=== PATIENT | female | born 1990 | race Caucasian/White ===

== ENCOUNTER 2022-03-24 05:03 | Inpatient (IN) ==
--- NOTE | 2022-03-17 16:24 | Anesthesiology Consultation ---
Date of Service March 17, 2022 Assessment & Plan (1) Encounter for pre-operative examination: Plan - COVID screening: Per boat loader on 03/16/2022: Travel screen negative, no known COVID-19 positive contacts or current COVID-19 related symptoms in past 2 weeks. To surgeon's discretion if preop COVID testing is needed. Chart Review Chart Review: Acceptable Risk for Surgery and Patient NOT seen in Pre Admission Testing History Surgery Operation Date: 03/24/22 07:30 Proposed Procedures p Section in LD (Delivery of Baby through Abdominal Incision) - Vanna Tran MD Height/Weight Height: 5 ft 5.5 in Weight: 64.41 kg Allergies Allergy/AdvReac Type Severity Reaction Status Date / Time gluten Allergy Severe celiac Verified 03/17/22 15:07 disease Medications Home Medications Medication Instructions Recorded Confirmed Last Taken prenat.vits,moreno,sip-pzdi-kcnly 1 tab PO QAM 08/11/21 03/17/22 Unknown Saccharomyces boulardii 250 mg 250 mg PO QAM 03/17/22 03/17/22 Unknown capsule ferrous sulfate 325 mg (65 mg 325 mg PO Q2D 03/17/22 03/17/22 Unknown iron) tablet Past Medical History Medical History Celiac disease History of COVID-28 April 2021 --> fever that lasted 10 days, chills and aches. no current issues Multiple gestation 2018 -- twins labor 35 weeks 1 days (2018) Past Family History Family History Grandmother Diabetes Grandfather (Maternal) Myocardial infarction Hypertension Grandfather (Paternal) Myocardial infarction Hypertension Mother Family history of reaction to anesthesia vomiting Sjogren's disease Denies family history of Ovarian cancer Prostate cancer Breast cancer Colorectal cancer Past Surgical History Surgical History H/O bladder repair surgery d/t a laceration during (04/2018) History of colonoscopy History of esophagogastroduodenoscopy (EGD) Hx of LASIK Previous section [place] teeth extracted Social History Smoking Status: Never smoker Do You Dip or Chew Tobacco: No Hx Alcohol Use: Yes (not during ) Alcohol type: wine alcohol intake frequency: a few times a week Hx Substance Use: No substance use type: does not use
--- NOTE | 2022-03-23 17:13 | History & Physical Report ---
Date of Service March 23, 2022 Assessment & Plan (1) Previous delivery affecting , antepartum: Plan: 31 yo at 39 3/7 wga presents for preop for planned repeat CS VSS Discussed indications, risks, benefits, alternatives with risks including infection, bleeding, injury to adjacent structures (bowel, bladder, ureters, blood vessels, nerves, baby), possible need for blood transfusion and/or life saving hysterectomy, VTE. Discussed risk of scar tissue due to prior bladder injury. Consent reviewed in detail w/ pt and signed after all questions answered to her satisfaction. History of Present Illness Chief Complaint: Preop Primary Care Provider: Tamera Lofton MD 31 yo at 39 3/7 wga presents for preop for planned repeat CS tomorrow. 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 primary CS for TIUP at 35wks c/b bladder injury during broderick placement G2 current q26d cycles 01/2021 neg cyto Allergies Allergy/AdvReac Type Severity Reaction Status Date / Time gluten Allergy Severe celiac Verified 03/23/22 09:08 disease Home Medications Medication Instructions Recorded Confirmed Type prenat.vits,moreno,fpm-panm-ahhyd 1 tab PO QAM 08/11/21 03/23/22 History Saccharomyces boulardii 250 mg 250 mg PO QAM 03/17/22 03/23/22 History capsule ferrous sulfate 325 mg (65 mg 325 mg PO Q2D 03/17/22 03/23/22 History iron) tablet Patient History Medical History Celiac disease History of COVID-28 April 2021 --> fever that lasted 10 days, chills and aches. no current issues Multiple gestation 2018 -- twins labor 35 weeks 1 days (2018) Surgical History H/O bladder repair surgery d/t a laceration during (04/2018) History of colonoscopy History of esophagogastroduodenoscopy (EGD) Hx of LASIK Previous section [place] teeth extracted Family History Grandmother Diabetes Grandfather (Maternal) Myocardial infarction Hypertension Grandfather (Paternal) Myocardial infarction Hypertension Mother Family history of reaction to anesthesia vomiting Sjogren's disease Denies family history of Ovarian cancer Prostate cancer Breast cancer Colorectal cancer Social History (Updated 08/11/21 @ 17:12 by Jessie Ley) Smoking Status: Never smoker Second Hand Exposure: No; Hx Alcohol Use: Yes (not during ) Alcohol type: wine Alcohol Intake Frequency: 2-3 x/Week Hx Substance Use: No Preferred Language: Yoruba Communication Ability: Effective Multilith Operator Required: No Beliefs That Will Affect Care: None marital status: marital status details: Philipp (34) [phone] Current Living Situation: Spouse and Family Current Living Situation Comment: Lives with and 2 kids, no pets. current occupational status: employed current occupation: Accounting Feels Safe at Home: Yes caffeine: Yes Dental Care, Regularly: Yes Physical Activity Frequency: Daily Physical Activity Frequency Comment: walking Seatbelt Use: always Sunscreen Use: Yes Assistive Devices: None Physical Exam Respiratory: normal respiratory effort, lungs clear to auscultation Cardiovascular: RRR, no murmur, no edema Genitourinary: OB Exam Abdomen: + heart tones (130s) and + vertex Results & Data ([facility]) Laboratory Results OB Labs: Blood Type O Positive 08/17/21 Antibody Screen NEGATIVE 08/17/21 Hemoglobin 10.9 g/dl (12.0-16.0) L 01/04/22 Hematocrit 32.0 % (34.1-44.9) L 01/04/22 Mean Corpuscular Volume 93.3 fL (80-100) 08/17/21 Platelet Count 230 K/uL (130-400) 08/17/21 Rubella IgG Antibody Non Immune (Immune) L 08/17/21 Rapid Plasma Reagin Nonreactive (Nonreactive) 08/17/21 Hepatitis B Surface Antigen. NON-REACTIVE (NON-REACTIVE) 08/17/21 Hepatitis C Antibody (EIA) NON-REACTIVE (NON-REACTIVE) 08/17/21 HIV (1&2) Ag and Ab Confirmation NON-REACTIVE (NON-REACTIVE) 08/17/21 Glucose 1 Hour 50 gm Load 141 mg/dl (70-130) H 10/12/21 OB Optional Labs: Chlamydia trachomatis RNA NOT DETECTED (NOT DETECTED) 08/17/21 Neisseria gonorrhoeae RNA NOT DETECTED (NOT DETECTED) 08/17/21 Thyroid Stimulating Hormone (TSH) 1.060 uIu/ml (0.300-4.500) 12/07/20 Labs Reviewed: Declines cf/sma--mln Declines cfdna--mln declines afp passed 2 hr gtt x 2 Diagnostic Findings Fundal plac Coding Level of Care Code None Diagnoses Previous delivery affecting , antepartum O34.219
[2022-03-24] MEDS ORDERED: LACTATED RINGER'S 1,000 ML IV SCH ×2 (05:15→09:06)
[2022-03-24] MEDS ORDERED: CITRIC ACID/SODIUM CITRATE 15 ML UDC PO SCH (06:00)
[2022-03-24] MEDS ORDERED: ceFAZolin 2000MG 2,000 MG/15 ML SYR IV SCH (06:00)
[2022-03-24 06:29] LABS: Basophils # (auto) 0.01 K/uL (0-0.2); Basophils % (auto) 0.2 %; Eosinophils # (auto) 0.03 K/uL (0-0.50); Eosinophils % (auto) 0.5 %; Hematocrit (blood only) 30.5 % (34.1-44.9); Hemoglobin 10.4 g/dl (12.0-16.0); Immature Granulocytes # (auto) 0.01 K/uL (0.00-0.02); Immature Granulocytes % (auto) 0.2 %; Lymphocytes # (auto) 1.17 K/uL (1.2-3.4); Lymphocytes % (auto) 20.9 %; Mean Corpuscular Hemoglobin 33.3 pg (25.0-34.0); Mean Corpuscular Hgb Conc 34.1 g/dL (32.0-36.0); Mean Corpuscular Volume 97.8 fL (80.0-100.0); Mean Platelet Volume 9.7 fL (9.4-12.3); Monocytes # (auto) 0.42 K/uL (0.24-0.82); Monocytes % (auto) 7.5 %; Neutrophils # (auto) 3.95 K/uL (1.4-6.5); Neutrophils % (auto) 70.7 %; Platelet Count 173 K/uL (130-400); RDW Coefficient of Variation 12.7 % (11.5-14.5); RDW Standard Deviation 45.1 fL (36.4-46.3); Red Blood Count 3.12 M/uL (3.93-5.22); White Blood Count 5.59 K/ul (4.8-10.8)
--- NOTE | 2022-03-24 07:17 | History & Physical Bridge Note ---
Date of Service March 24, 2022 History & Physical Bridge Note I have examined the patient, reviewed the History & Physical and in the interval since the performance of the History & Physical I have noted the following changes of clinical significance: no changes noted
[2022-03-24] MEDS ORDERED: ePHEDrine sulfate 50 MG/ML AMP IV PRN (07:24)
[2022-03-24] MEDS ORDERED: HYDROmorphone INJ 0.5 MG/0.5 ML SYR IV PRN (07:24)
[2022-03-24] MEDS ORDERED: NALOXONE HCL 0.08 MG in SYRINGE 1.8 ML IV PRN (07:24)
[2022-03-24] MEDS ORDERED: MoRPHine SULFATE PF 1 MG/ML 10 ML AMP/VIAL INT SPINAL ONE (07:24)
[2022-03-24] MEDS ORDERED: NALOXONE HCL 0.4 MG/1 ML VIAL/CARP IV PRN (07:24)
[2022-03-24] MEDS ORDERED: ONDANSETRON INJ 2 MG/ML 2 ML VIAL IV PRN (07:24)
[2022-03-24] MEDS ORDERED: LACTATED RINGER'S 500 ML IV PRN (07:24)
[2022-03-24] MEDS ORDERED: NALBUPHINE HCL INJ 10 MG/ML AMP IV PRN (07:24)
[2022-03-24] MEDS ORDERED: NALOXONE HCL 1 MG in SODIUM CHLORIDE 0.9% 1000ML 1,000 ML IV PRN (07:24)
[2022-03-24] MEDS ORDERED: fentaNYL citrate 100 MCG/2 ML VIAL ONE (07:29)
[2022-03-24] MEDS ORDERED: MoRPHine SULFATE PF 1 MG/ML 10 ML AMP/VIAL ONE (07:29)
[2022-03-24] MEDS ORDERED: SODIUM CHLORIDE 0.9% 1000ML 1,000 ML IV SCH (07:30)
[2022-03-24] MEDS ORDERED: NO NARCOTICS OR SEDATIVES SCH (07:30)
[2022-03-24] MEDS ORDERED: DC INTRASPINAL MORPHINE SCH (07:30)
[2022-03-24] MEDS ORDERED: OXYTOCIN 10 UNITS/ML 10ML VIAL ONE (07:35)
[2022-03-24] MEDS ORDERED: PHENYLEPHRINE 100MCG/ML 5ML SYR ONE (07:52)
[2022-03-24] MEDS ORDERED: ONDANSETRON INJ 2 MG/ML 2 ML VIAL ONE (08:17)
[2022-03-24] MEDS ORDERED: MEASLES, MUMPS & RUBELLA VIRUS VIAL SQ ONE (09:06)
[2022-03-24] MEDS ORDERED: HYDROCORTISONE ACETATE 25 MG SUPP PR PRN (09:06)
[2022-03-24] MEDS ORDERED: MAGNESIUM HYDROXIDE SUSP 30 ML UDC PO PRN (09:06)
[2022-03-24] MEDS ORDERED: DIPHTHERIA/TETANUS/PERTUSSIS 0.5 ML SYR/VIAL IM ONE (09:06)
[2022-03-24] MEDS ORDERED: BENZOCAINE 20% AER SPR 82.5 GM CAN EXT PRN (09:06)
[2022-03-24] MEDS ORDERED: SENNA 8.6 MG TAB PO PRN (09:06)
--- NOTE | 2022-03-24 09:10 | Operative Report ---
PG Post Operative Report Pre & Post Diagnosis Operation Date: 03/24/22 07:30 Pre-Op Diagnosis: Previous section, desires repeat Post-Op Diagnosis: Previous section; desires repeat, living female child at 0813 I identified the patient and participated in the time-out.: Yes Procedure Operation Date: 03/24/22 07:30 Actual Procedures p Repeat Low Transverse Section for living female child at 0813(Bilateral) - Vanna Tran MD Surgeon Vanna Tran MD Clay Pigeon Loader MD Kiya Estimated Blood Loss 650 Findings Consistent with Post-Op Diagnosis Mild fascial adhesions. Mostly filmy bladder adhesions to residential up uterus, few areas of slightly denser peritoneal adhesions. Normal appearing bilateral fallopian tubes and ovaries, right tube and ovary slightly adhesed to posterior right uterus. Fluids 2200cc crystalloid, 500cc clear uop by broderick catheter Specimens Cord blood Drains Broderick catheter draining clear urine Anesthesia Type Spinal Complications none Indications 31 yo at 39 4/7 wga presents for elective repeat CS. Hx CSx1 for twins in last complicated by bladder injury Description of Procedure The patient was taken to the operating room after consents were ensured. The patient was properly identified. Spinal anesthesia was obtained without difficulty. The patient was placed in a dorsal supine position with left lateral tilt, then prepped and draped in normal sterile fashion. Surgical time out was performed. Antibiotics were given for prophylaxis. Anesthesia was tested to ensure adequate surgical levels. Pfannenstiel skin incision was performed and carried down to the underlying fascia with a knife. The fascia was then nicked in the midline and extended laterally with pickups and Whaley scissors. Superior portion of the fascia was grasped with Kochers x2 and elevated off the underlying rectus muscles using blunt dissection and scissors. Inferior portion of the fascia was then grasped with Tamia clamps x2 and also elevated off the underlying muscles with blunt dissection and knife. Midline was identified. The peritoneum was entered at time of fascial dissection and extended to provide adequate room for delivery of baby. A hand was inserted into the abdomen, the above adhesions were noted and taken down sharply. Bladder blade was inserted, bladder flap was created in the usual fashion after the above adhesions were taken down. A low transverse uterine incision was made in the uterus and extended bluntly in a superior to inferior fashion. Amniotomy was made with clear fluid at the time of rupture. head was grasped and elevated through the hysterotomy in an atraumatic fashion. The baby delivered in YANCY position, no nuchal cord. Remainder of the body delivered without incident. Nose and mouth were bulb suctioned on the surgical field. The cord was double clamped and cut, baby was handed off to awaiting pediatrics staff. Cord segment and blood were obtained. Placenta was then expressed from the uterus. The uterus was exteriorized. Several passes were made inside the uterus to remove the remaining membranes. Attention was then turned to the hysterotomy, which was then closed with a running locked suture of 0 Vicryl on a CTX needle. An imbricating layer was then performed using 0-Monocryl. There was noted to be good hemostasis. The posterior cul-de-sac was then inspected and cleaned of clot and debris. The hysterotomy was again inspected and noted to be hemostatic. The uterus was returned to the abdomen. The right and left pericolic gutters were cleaned of all clot and debris. The hysterotomy was again noted to be hemostatic. Space of Retzius was noted to be hemostatic. The fascia was then closed with a running suture of 0 Vicryl on a CT1 needle. Subcutaneous tissue was copiously irrigated and noted to be hemostatic. Subcutaneous tissue was re-approximated using 2-0 plain gut. The skin was then closed with a running suture of 3-0 Monocryl in a subcuticular fashion. At termination of the procedure, fundal pressure was applied and a moderate amount of lochia was expressed. Pressure dressing was applied to the patient. She tolerated the procedure well. All sponge, needle, instrument counts were correct x 2. I attest to the content of the Intraoperative Record and any orders documented therein. Any exceptions are noted below. OB Procedure Charges 76134
[2022-03-24] MEDS ORDERED: OXYTOCIN 20 UNITS in LACTATED RINGER'S 1,000 ML IV SCH (09:15)
--- NOTE | 2022-03-24 09:39 | Anesthesiology Progress Note ---
Date of Service March 24, 2022 Anesthesia Post Procedure Vital Signs Vital Signs: Temp Pulse Resp BP Pulse Ox 03/24/22 09:25 16 03/24/22 09:15 16 03/24/22 09:00 36.5 C 18 03/24/22 05:27 37.0 C 18 03/24/22 09:36 60 98 03/24/22 09:35 58 L 97/70 L 03/24/22 09:31 62 99 03/24/22 09:26 61 99 03/24/22 09:25 62 93/66 L 03/24/22 09:21 54 L 100 03/24/22 09:16 52 L 99 03/24/22 09:15 52 L 92/63 L 03/24/22 09:11 54 L 98 03/24/22 09:06 59 L 99 03/24/22 09:04 60 93/51 L 03/24/22 09:01 53 L 99 03/24/22 09:02 51 L 87/55 L 03/24/22 07:35 62 99 03/24/22 07:30 71 98 03/24/22 07:25 73 99 03/24/22 07:20 68 98 03/24/22 07:05 63 107/63 03/24/22 06:55 18 03/24/22 06:55 36.6 C 18 03/24/22 05:19 74 124/67 Transfer of Care Handoff Completed per policy Notes Mental Status: alert / awake / arousable Patient Amnestic to Procedure: Yes Nausea / Vomiting: adequately controlled Pain: adequately controlled Airway Patency, RR, SpO2: stable & adequate BP & HR: stable & adequate Hydration State: stable & adequate Neuraxial Anesthesia: was administered and sensory block is resolving Anesthetic Complications: no major complications apparent and Pt Satisfied with anesthetic care
[2022-03-24] MEDS: KETOROLAC 30 MG/ML VIAL IV PRN ×2 (11:27→19:30)
[2022-03-24] MEDS: SIMETHICONE 80 MG CHEW PO SCH ×3 (13:48→21:00)
[2022-03-24] MEDS ORDERED: DROPERIDOL 5 MG/2 ML VIAL IV STA (14:01)
[2022-03-24] MEDS: diphenhydrAMINE 50 MG/ML VIAL IV PRN ×2 (15:56→23:41)
[2022-03-24] MEDS: DOCUSATE SODIUM 100 MG CAP PO SCH (21:00)
[2022-03-25] MEDS: KETOROLAC 30 MG/ML VIAL IV PRN (00:55)
[2022-03-25] MEDS ORDERED: diphenhydrAMINE 50 MG/ML VIAL IV PRN (01:25)
[2022-03-25] MEDS ORDERED: KETOROLAC 30 MG/ML VIAL IV PRN (01:25)
[2022-03-25] MEDS ORDERED: PROMETHAZINE HCL 25 MG in SODIUM CHLORIDE 0.9% 50 ML IV PRN (01:25)
[2022-03-25] MEDS ORDERED: ONDANSETRON INJ 2 MG/ML 2 ML VIAL IV PRN (01:25)
[2022-03-25] MEDS ORDERED: diphenhydrAMINE Capsule 25 MG CAP PO PRN (01:25)
--- NOTE | 2022-03-25 04:23 | Obstetrical Progress Note ---
Date of Service March 25, 2022 Assessment & Plan (1) care following delivery: Plan - Overall, feeling well and eating well today - Infant feeding going well without concern - Continue to follow urination, passing gas appropriately - Ambulating well - Pain controlled w/ Ibuprofen and Percocet - Hgb 10.4 on 03/24 - Vitals stable - Incision clean and dry w/o erythema or purulence - Routine PP care progressing well - Anticipate discharge at 48-72 hours - Recommending f/u outpatient in 6 weeks Admission and Anticipated Discharge Date Admission Date: March 24, 2022 Supervising Physician Co-Signing Physician Notes Resident Physician Supervision Note: I interviewed and examined the patient. Discussed with Dr. Stone and agree with findings and plan as documented in the note. Any exceptions or clarifications are listed here: POD1 s/p rLTCS, doing well. Gomez out, not yet voided but meeting other pp milestones. VSS, exam benign and wnl, incision c/d/i. Continue routine pp care Documented By: Vanna Tran MD Subjective Patient is a 31 y/o female who is POD #1 following delivery at 39w3d. She reports feeling well overall this morning. - Ambulation - well throughout room, single episode of syncope with first walk to bathroom, none since - Voiding/Gomez - no independent voids, no dysuria or pressure, Gomez removed thi AM - Gas/Stool - passing gas, no bowel movement - Diet - regular, no nausea or emesis - Lochia - diminishing, light amount - Feeding Type - breast feeding - Pain Level - 2/10, controlled with Ibuprofen and Percocet Review of Systems - Denies fever, chills, sweats - Denies shortness of breath, difficulty breathing, chest pain, palpitations, chest pressure. - Denies breast pain. - Denies dysuria. - Denies headache or changes in vision. Physical Exam Physical Exam: General: Alert, oriented. No acute distress. Cardiac: RRR, normal S1/S2, no murmurs/rubs/gallops. Respiratory: Non-labored, CTAB, no wheezes/rales/rhonchi. Symmetric chest rise. Abdomen: Soft, nontender, nondistended. Bowel sounds present. Incision clean and dry w/o erythema or purulence Uterus: Uterine fundus firm, palpable 1 cm below umbilicus. Lower Extremities: No lower extremity edema or swelling. No deep calf pain. Scott's negative bilaterally. Results & Data ([facility]) Vital Signs (Past 12 Hours) Vital Signs Temp Pulse Resp BP Pulse Ox Pulse Ox O2 Del Method 03/25/22 01:30 18 97 03/25/22 00:30 18 97 03/24/22 21:30 18 97 03/24/22 22:30 18 98 03/24/22 23:30 36.8 C 65 18 100/66 97 Room Air 03/24/22 23:30 97 03/24/22 20:30 18 97 03/24/22 23:45 18 97 03/24/22 19:40 18 98 03/24/22 19:40 36.7 C 74 18 106/71 98 Room Air 03/24/22 19:40 99 03/24/22 18:00 16 100 03/24/22 17:00 18 100 O2 Del Method 03/25/22 01:30 03/25/22 00:30 03/24/22 21:30 03/24/22 22:30 03/24/22 23:30 03/24/22 23:30 Room Air 03/24/22 20:30 03/24/22 23:45 03/24/22 19:40 03/24/22 19:40 03/24/22 19:40 Room Air 03/24/22 18:00 03/24/22 17:00 Resident Activity Tracking Resident Involvement: Resident Care Provided Care Provided: OB Delivery
[2022-03-25] MEDS: oxyCODONE/ACETAMINOPHEN 5mg/325mg TAB PO PRN ×5 (06:27→23:45)
[2022-03-25] MEDS: IBUPROFEN 600 MG TAB PO PRN ×5 (06:28→23:44)
[2022-03-25] MEDS: SIMETHICONE 80 MG CHEW PO SCH ×4 (07:54→19:37)
[2022-03-25] MEDS: DOCUSATE SODIUM 100 MG CAP PO SCH ×2 (07:55→19:37)
[2022-03-25] MEDS: PRENATAL VITAMIN 1 TAB PO SCH (07:55)
[2022-03-25] MEDS: FERROUS SULFATE 325 MG TAB PO SCH (07:55)
[2022-03-25 08:33] LABS: Basophils # (auto) 0.02 K/uL (0-0.2); Basophils % (auto) 0.2 %; Eosinophils # (auto) 0.03 K/uL (0-0.50); Eosinophils % (auto) 0.3 %; Hematocrit (blood only) 34.6 % (34.1-44.9); Hemoglobin 11.7 g/dl (12.0-16.0); Immature Granulocytes # (auto) 0.03 K/uL (0.00-0.02); Immature Granulocytes % (auto) 0.3 %; Lymphocytes # (auto) 1.15 K/uL (1.2-3.4); Lymphocytes % (auto) 11.3 %; Mean Corpuscular Hemoglobin 33.7 pg (25.0-34.0); Mean Corpuscular Hgb Conc 33.8 g/dL (32.0-36.0); Mean Corpuscular Volume 99.7 fL (80.0-100.0); Mean Platelet Volume 9.9 fL (9.4-12.3); Monocytes # (auto) 0.53 K/uL (0.24-0.82); Monocytes % (auto) 5.2 %; Neutrophils # (auto) 8.43 K/uL (1.4-6.5); Neutrophils % (auto) 82.7 %; Platelet Count 197 K/uL (130-400); RDW Coefficient of Variation 12.7 % (11.5-14.5); RDW Standard Deviation 46.1 fL (36.4-46.3); Red Blood Count 3.47 M/uL (3.93-5.22); White Blood Count 10.19 K/ul (4.8-10.8)
[2022-03-25] MEDS ORDERED: bisacodyL 5 MG TABEC PO SCH (20:00)
--- NOTE | 2022-03-26 05:44 | Obstetrical Progress Note ---
Date of Service March 26, 2022 Assessment & Plan (1) care following delivery: Plan - Overall, feeling well and eating well today - Infant feeding going well without concern - Urinating independently, passing gas appropriately - Ambulating well in room - Pain controlled w/ Ibuprofen and Percocet - Hgb 11.7 on 03/25 - Vitals stable and wnl - Incision clean and dry w/o erythema or purulence - Routine PP care progressing well - Anticipate discharge today at 48 hours - Recommending f/u outpatient in 6 weeks Admission and Anticipated Discharge Date Admission Date: March 24, 2022 Supervising Physician Co-Signing Physician Notes Resident Physician Supervision Note: I was present with Dr. Stone during the history and exam. I discussed the case with the resident and agree with the findings and plan as documented in the note. Any exceptions or clarifications are listed here: doing well, pod #2 after c/s. ready to go home. instructions reviewed. f/u 6 wk pp. abd ff 2 down nt, incision c/d/i, ext nt calves. breast, rh pos, needs mmr before dc. Documented By: Kelly Gallardo MD, FACOG Subjective Patient is a 31 y/o female who is POD #2 following delivery at 39w3d. She reports feeling well overall this morning and wants to go home. - Ambulation - well throughout room without difficulty - Voiding/Gomez - independent voids, no dysuria or pressure - Gas/Stool - passing gas, no bowel movement - Diet - regular, no nausea or emesis - Lochia - diminishing, light amount - Infant Feeding Type - breast feeding without concern - Pain Level - 4/10, controlled with Ibuprofen and Percocet Review of Systems - Denies fever, chills, sweats - Denies shortness of breath, difficulty breathing, chest pain, palpitations, chest pressure. - Denies breast pain. - Denies dysuria. - Denies headache or changes in vision. Physical Exam Physical Exam: General: Alert, oriented. No acute distress. Cardiac: RRR, normal S1/S2, no murmurs/rubs/gallops. Respiratory: Non-labored, CTAB, no wheezes/rales/rhonchi. Symmetric chest rise. Abdomen: Soft, nontender, nondistended. Bowel sounds present. Incision clean and dry w/o erythema or purulence Uterus: Uterine fundus firm, palpable 2 cm below umbilicus. Lower Extremities: No lower extremity edema or swelling. No deep calf pain. Scott's negative bilaterally. Results & Data ([facility]) Vital Signs (Past 12 Hours) Vital Signs Temp Pulse Resp BP BP Pulse Ox O2 Del Method 03/25/22 23:13 36.7 C 90 18 100/68 97 Room Air 03/25/22 19:30 36.4 C L 79 18 108/68 Room Air Resident Activity Tracking Resident Involvement: Resident Care Provided Care Provided: OB Delivery
[2022-03-26] MEDS: oxyCODONE/ACETAMINOPHEN 5mg/325mg TAB PO PRN ×2 (06:02→10:39)
[2022-03-26] MEDS: IBUPROFEN 600 MG TAB PO PRN ×2 (06:03→10:40)
[2022-03-26 07:02] LABS: Hematocrit (blood only) 30.2 % (34.1-44.9); Hemoglobin 10.3 g/dl (12.0-16.0)
[2022-03-26] MEDS ORDERED: bisacodyL 10 MG SUPP PR PRN (08:59)
[2022-03-26] MEDS: SIMETHICONE 80 MG CHEW PO SCH (09:04)
[2022-03-26] MEDS: FERROUS SULFATE 325 MG TAB PO SCH (09:04)
[2022-03-26] MEDS: PRENATAL VITAMIN 1 TAB PO SCH (09:04)
[2022-03-26] MEDS: DOCUSATE SODIUM 100 MG CAP PO SCH (09:04)
--- NOTE | 2022-03-28 08:25 | Discharge Summary ---
Date of Service March 28, 2022 Admission HPI Per Admitting Provider 31 yo at 39 3/7 wga presents for preop for planned repeat CS tomorrow. 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 primary CS for TIUP at 35wks c/b bladder injury during broderick placement G2 current q26d cycles 01/2021 neg cyto Admission Exam (Per Admitting) Respiratory normal respiratory effort, lungs clear to auscultation Cardiovascular RRR, no murmur, no edema Genitourinary OB Exam Abdomen: + heart tones (130s) and + vertex Discharge Data Consultations 03/24/22 05:10 Consult Anesthesiology Stat Procedures Performed Operation Date: 03/24/22 07:30 Actual Procedures p Section for living female child at 0813(Bilateral) - Vanna Tran MD Hospital Course (1) Previous delivery affecting , antepartum: 31 yo at 39 4/7 wga presents for elective repeat CS, see operative report for details. Postoperative course was uncomplicated and she was discharged home on POD2 Coding Level of Care Code None Diagnoses Previous delivery affecting , antepartum O34.219
== END 2022-03-26 12:00 | disposition home or self-care (01) | DRG 788 ==
LOC: 4S1 05:03 → EDSTATUS 07:30 → 4E2 12:05